=== PATIENT | female | born 1945 | race Caucasian/White ===

== ENCOUNTER → 2024-10-13 13:09 | Outpatient (REF) | payer OTHER, SELFPAY | LOC: RCS 13:09 | PROVIDERS: ATTENDING PHYSICIAN Physician Assistant | DX: I49.9 Cardiac arrhythmia, unspecified (principal); R53.83 Other fatigue | CPT/HCPCS: 93225; 93226 ==

== ENCOUNTER → 2024-10-27 13:43 | Outpatient (REF) | payer OTHER, SELFPAY | LOC: RCS 13:43 | PROVIDERS: ATTENDING PHYSICIAN Physician Assistant | DX: I49.3 Ventricular premature depolarization (principal); R53.83 Other fatigue; R06.02 Shortness of breath | CPT/HCPCS: 93306 ==